=== PATIENT | female | born 1970 | race Caucasian/White ===

== ENCOUNTER → 2023-10-28 09:47 | Outpatient (REF) | payer BC, SELFPAY | LOC: WDC 09:47 | PROVIDERS: ATTENDING PHYSICIAN Family Medicine; FAMILY PHYSICIAN Family Medicine | DX: N64.4 Mastodynia (principal) | CPT/HCPCS: 76642; 77062; 77066 ==

== ENCOUNTER → 2024-04-02 08:20 | Outpatient (REF) | payer BC, SELFPAY | LOC: RAD 08:20 | PROVIDERS: ATTENDING PHYSICIAN Family Medicine | DX: M25.572 Pain in left ankle and joints of left foot (principal) | CPT/HCPCS: 73610 ==

== ENCOUNTER 2024-09-23 03:34 | Emergency (ER) | payer BC, SELFPAY ==
[2024-09-23 03:50] VITALS: BP 149/85
[2024-09-23 04:24] VITALS: BMI 29.2
[2024-09-23 04:51] VITALS: BP 113/77
[2024-09-23 05:00] VITALS: BP 121/78
[2024-09-23 05:04] LABS: % Basophils 0.4 % (0-2); % Immature Granulocytes 0.2 % (0-0.5); % Lymphocytes 28.7 % (20.5-51.1); % Monocytes 10.1 % (1.7-9.3); % Neutrophils 58.6 % (42.2-75.2); Absolute Eosinophils 0.1 10^3/uL (0-0.7); Absolute Lymphocytes 1.5 10^3/uL (1.2-3.4); Absolute Monocytes 0.5 10^3/uL (0.1-0.6); Absolute Neutrophils 3.2 10^3/uL (1.4-6.5); Hematocrit 38.5 % (37.0-47.0); Hemoglobin 12.9 g/dL (12.0-16.0); Mean Corp Hgb Conc. 33.5 g/dL (33.0-37.0); Mean Corpuscular Hgb 30.9 pg (27.0-31.0); Mean Corpuscular Volume 92.1 fL (81.0-99.0); Mean Platelet Volume 9.4 fL (7.4-10.4); Nucleated Red Blood Cells % 0 %; Platelet Count 335 10^3/uL (130-400); Red Blood Cell Count 4.18 10^6/uL (4.20-5.40); Red Cell Dist. Width 12.1 % (11.5-14.5); White Blood Cell Count 5.4 10^3/uL (4.8-10.8)
[2024-09-23 05:07] LABS: ALT (SGPT) 17 U/L (0-35); AST (SGOT) 22 U/L (14-36); Albumin 4.5 g/dl (3.5-5.0); Alkaline Phosphatase 76 U/L (38-126); Blood Urea Nitrogen 24 mg/dl (7-17); Calcium 9.3 mg/dl (8.4-10.2); Carbon Dioxide 25 mmol/L (22-30); Chloride 103 mmol/L (98-107); Estimated Creatinine Clearance 72 ml/min; Glucose 94 mg/dl (70-99); Potassium 4.5 mmol/L (3.5-5.1); Sodium 138 mmol/L (135-145); Total Bilirubin 0.5 mg/dl (0.2-1.3); Total Protein 7.2 g/dl (6.3-8.2); eGFR > 60.00
--- NOTE | 2024-09-23 05:11 | ED.GENMED ---
History of Present Illness
General
Chief Complaint: Cardiac Symptoms
Source: patient
Exam Limitations: none
Time Seen by Provider: 09/23/24 04:59
Nursing documentation reviewed up to this point in time: agreed with
History of Present Illness
History of Present Illness:
This is a 53-year-old woman who has no significant past medical history, takes no medicines on a daily basis who presents with left upper arm pain, ache that began yesterday evening, persistent tonight. She also noted brief twinges of left upper
chest pain yesterday evening around 6 PM while eating dinner. Left upper chest brief, momentary twinging pain occurred perhaps 2-3 times during dinnertime and she also noted mild intermittent epigastric discomfort but no nausea, no cough no
shortness of breath. She did however noticed very mild dyspnea on exertion 2 days ago while walking up and down the steps, caring for her [id number] grandson. Dyspnea on exertion 2 days ago was not accompanied with arm pain nor chest pain nor
palpitations. She has not had a cough nor fever. No dizziness nor lightheadedness. No leg pain or swelling.
No recent travel.
She denies fall nor injury but does stay active on a daily basis, caring for her grandson during the week.
Prior records reviewed. Patient has history of left lower lobe pneumonia October 2022. At that time had been suffering with cough and fever for 2 weeks. Outpatient chest x-ray showed left lower lobe pneumonia. 3 days later, ED visit, CT of the
chest showed no evidence of PE but evidence of left lower lobe focal infiltrate/pneumonia.
Follow-up chest x-ray December 2022 showed resolution of pneumonia.
Past History
Past History
ED Past Medical History: None and Other (Left lower lobe pneumonia October 2022)
ED Past Surgical History: Gynecological (Hysterectomy) and Other ( basal cell carcinoma removal from face)
Social History
Tobacco: Non-smoker
Alcohol: None
Drug: None
Personal:
Living: with family
Employment: Other
Family History
Family History: Negative CAD or Sudden
Phy Exam
Physical Exam
Physical Exam:
GENERAL: 53-year-old woman appears her stated age, bright and alert, pleasant, appears in no acute distress.
EYE: anicteric
NECK: Supple, nontender, no meningismus, no significant adenopathy.
ENT: oral mucosa is moist. No rhinorrhea.
CARDIAC: Regular rate and rhythm. no murmur. No rub. No palpable chest wall tenderness.
LUNGS: Clear breath sounds bilaterally, no acute respiratory distress, no wheezes/rales/rhonchi
ABDOMEN: Soft, nondistended, without focal tenderness, normoactive BS.
NEUROLOGICAL: Alert and oriented x3, no focal neuro deficits. Gait is steady.
SKIN: Warm and dry, normal color, skin intact. No rash.
MUSCULOSKELETAL: No C/C/E. peripheral pulses are full and equal b/l. Mild tenderness palpation left mid to distal bicep. Palpation seems to exactly reproduce patient's pain complaint. There is full shoulder and elbow range of motion without
difficulty nor pain. No soft tissue swelling, no erythema.
PSYCH: Normal and appropriate interaction.
Scores
Heart Score for Chest Pain Patients
STEMI patient?: No
History: Slightly or Non-Suspicious
ECG: Normal
Age: >45 - <65 years
Risk Factors: No Risk Factors
Troponin: </= Normal Limit
Heart Score for Chest Pain Patients: 1
Heart Score Risk: 2.5% MACE over next 6 weeks
PE Wells Score
Symptoms of DVT: No
No alternative diagnosis better explains the illness: No
Tachycardia with pulse > 100: No
Immobilization (>=3 days) or surgery within previous 4 weeks: No
Prior history of DVT or pulmonary embolism: No
Presence of hemoptysis: No
Presence of malignancy: No
Pulmonary Embolism Risk Score: 0
Probability of PE: Pt is low risk
Course
Orders/Labs/Results
Orders:
Orders
09/23/24 03:36
EKG [Electrocardiogram (*1)] Urgent
Reason for Study: Chest Pain
Other Reason for Exam: no chest pain, + shoulder pain
09/23/24 03:37
EKG- Treatment ONCE
09/23/24 04:25
Complete Blood Count/With Diff Urgent
Comprehensive Metabolic Panel Urgent
Troponin I Urgent
09/23/24 05:11
CR Chest - 2 Views Urgent
Comment:
Reason For Exam: left sided CP
Abnormal Lab Results
09/23/24
04:25
RBC 4.18 L 10^6/uL
(4.20-5.40)
Monocytes % 10.1 H %
(1.7-9.3)
BUN 24 H mg/dl
(7-17)
09/23/24 04:25
09/23/24 04:25
Vital Signs
Initial and Last Documented VS:
Initial Vital Signs
Temp Pulse Resp BP Pulse Ox
97.8 F 67 16 149/85 98
09/23/24 03:50 09/23/24 03:50 09/23/24 03:50 09/23/24 03:50 09/23/24 03:50
Last Documented Vital Signs
Temp Pulse Resp BP Pulse Ox
97.8 F 59 17 149/85 97
09/23/24 03:50 09/23/24 04:45 09/23/24 04:45 09/23/24 03:50 09/23/24 04:45
MDM/Problems Addressed
Differential Diagnosis Includes:
Patient presents with left arm pain that began yesterday evening accompanied with few brief twinges of left upper chest discomfort.
History and exam most consistent with musculoskeletal pain, other consideration is GERD, less likely ACS.
No risk factors for thromboembolism.
EKG is unremarkable and unchanged from previous.
Labs are pending including troponin.
She has remote history of pneumonia October 2022 but at that time had URI symptoms, fever and cough for 2 weeks. She does note since that time she has had some intermittent left anterior, costal margin chest discomfort, likely not related to
previous pneumonia. Chest pain is not pleuritic in nature. Will check chest x-ray assess for potential pleural effusion, atelectasis/scarring, less likely infiltrate.
*Radiology
Radiology exam reviewed: preliminary read by ED provider (Chest x-ray is unremarkable, unchanged from previous December 2022)
*Pulse Oximetry
Patient hypoxic: no
*EKG
Interpreted by ED Provider?: Yes
Interpretation: normal
Comparison EKG: no changes ( Unchanged from previous May 2022)
Rate: normal
Rhythm: sinus
[place]: normal axis
Interval: normal interval
QRS Pattern: normal QRS
Ischemia: no ischemia
*Child Care Sitter Interpretation
Rate: normal
Interpretation: normal
Rhythm: sinus
*Critical Care Note
Total Time (30-74mins, 75-104mins- exclusive of procedures): Not Applicable
Update Note
Update Note:
06:15
Patient resting comfortably.
She has had no return of chest pain. Continues with mild left upper arm pain most noted with palpation of anterior bicept I suspect musculoskeletal in nature.
Labs are unremarkable including negative troponin.
Chest x-ray is unremarkable.
Recommend Tylenol versus ibuprofen as needed for pain. Fleeting chest discomfort may be GERD in nature and thus recommend [id number] PPI such as omeprazole.
Prompt follow-up with PCP for recheck.
Return precautions discussed.
ED Attending Note
-
Portions of this chart may have been created with voice recognition software.� Occasional wrong word or��sound alike� substitutions may have occurred due to the inherent limitations of voice recognition software.
Discharge Plan
Departure
Patient Disposition: Home (Routine Discharge)
Date of Disposition: 09/23/24
Time of Disposition: 06:25
Patient with high blood pressure during this ER visit?: No
Condition: Good
Discharge Problem:
Acute nonspecific chest pain with low risk of coronary artery disease, Arthralgia of left upper arm
Instructions: Acid reflux and GERD in adults, Chest Pain PCP Follow Up
Prescriptions:
No Action
cholecalciferol (vitamin D3) 1,000 UNITS tablet
1,000 units PO DAILY
multivitamin with folic acid [Tab-A-Uri] 1 TABLET tablet
1 tab PO DAILY
meclizine [Antivert] 25 mg Tablet,Chewable
25 mg PO BIDPRN PRN (Reason: nausea or vertigo) Qty: 10 0RF
levofloxacin 750 mg tablet
750 mg PO DAILY 6 Days Qty: 6 0RF
Referrals:
Adrien Campbell DO [Family Provider] - Call in 1-3 days for appt
Interventions
Interventions:
*Risk Screen - Suicide Last Done: 09/23/24 03:39
*General Assessment Last Done: 09/23/24 03:39
*Neglect/Abuse Screening Last Done: 09/23/24 03:39
ED- Fall Risk Assessment Last Done: 09/23/24 03:39
*ED COVID-19 Vaccine History Last Done: 09/23/24 03:39
ED- Pulmonary Assessment Last Done: 09/23/24 04:52
ED- Cardiac Assessment Last Done: 09/23/24 04:52
Discharge Date and Time
Print Language: [id number]
[2024-09-23 05:16] LABS: Troponin I 0.012 ng/ml
[2024-09-23 06:00] VITALS: BP 128/78
[2024-09-23 06:22] VITALS: BP 132/78
== END 2024-09-23 06:42 | disposition home or self-care (01) ==
LOC: EMR 03:34
PROVIDERS: EMERGENCY PHYSICIAN Emergency Medicine; FAMILY PHYSICIAN Family Medicine
DX: R07.89 Other chest pain (principal); M25.59 Pain in other specified joint
CPT/HCPCS: 99285; 71046; 80053; 84484; 85025; 93005

== ENCOUNTER → 2024-11-25 14:57 | Outpatient (REF) | payer BC, SELFPAY | LOC: HWRAD 14:57 | PROVIDERS: ATTENDING PHYSICIAN Family Medicine | DX: E04.1 Nontoxic single thyroid nodule (principal) | CPT/HCPCS: 76536 ==

== ENCOUNTER → 2025-05-18 12:50 | Outpatient (REF) | payer BC, SELFPAY | LOC: RCS 12:50 | PROVIDERS: ATTENDING PHYSICIAN Internal Medicine Cardiovascular Disease; FAMILY PHYSICIAN Family Medicine | DX: R07.9 Chest pain, unspecified (principal); R06.02 Shortness of breath; R55 Syncope and collapse | CPT/HCPCS: 93017; 93350 ==

== ENCOUNTER → 2025-05-20 12:45 | Outpatient (REF) | payer BC, SELFPAY | LOC: HWRAD 12:45 | PROVIDERS: ATTENDING PHYSICIAN Obstetrics & Gynecology Gynecology; FAMILY PHYSICIAN Family Medicine | DX: R10.2 Pelvic and perineal pain (principal) | CPT/HCPCS: 76830; 76856 ==

== ENCOUNTER → 2025-06-24 16:40 | Outpatient (REF) | payer BC, SELFPAY | LOC: RAD 16:40 | PROVIDERS: ATTENDING PHYSICIAN Obstetrics & Gynecology Gynecology; FAMILY PHYSICIAN Family Medicine | DX: L76.82 Other postprocedural complications of skin and subcutaneous tissue (principal) | CPT/HCPCS: 74178; Q9967 ==

== ENCOUNTER → 2025-08-04 11:05 | Outpatient (REF) | payer BC, SELFPAY | LOC: WDC 11:05 | PROVIDERS: ATTENDING PHYSICIAN Obstetrics & Gynecology Gynecology; FAMILY PHYSICIAN Family Medicine | DX: Z12.31 Encounter for screening mammogram for malignant neoplasm of breast (principal) | CPT/HCPCS: 77063; 77067 ==